=== PATIENT | male | born 1950 | race Asian ===

== ENCOUNTER → 2019-10-08 | Outpatient (CLI) | payer MEDICARE ==
[~2019-10-08] MED LIST: ALLO100T30 PO; ASPI81TA50 PO; CANA100T PO; CYCL-259 PO; GABA-826 PO; IBUP-1222 PO; LEVO25TA4 PO; LISI-167 PO; LOVA10TA PO; METF10002 PO; REGADENOSON 0.4 MG/5 ML SYRINGE ONE; TRAM50TA2 PO
== END | disposition home or self-care (01) ==
LOC: CFH 12:32
PROVIDERS: ATTEND Registered Nurse
DX: I10 Essential (primary) hypertension (principal); R07.89 Other chest pain
CPT/HCPCS: 78452; 93017; A9502; J2785

== ENCOUNTER 2019-11-09 15:13 | Emergency (ER) | payer MEDICARE, OTHER ==
[~2019-11-09] VITALS: Ht 172.7 cm; Wt 66.1 kg
[~2019-11-09 15:13] MED LIST changes: -REGADENOSON 0.4 MG/5 ML SYRINGE ONE
[2019-11-09 15:30] VITALS: BP 158/133
--- NOTE | 2019-11-09 15:43 | NUR ---
FIRST CONTACT WITH PT. PT WAS REAR ENDED BY CARE. PT CO OF BACK OF HEAD AND NECK PAIN. PT'S AOX4. RESPS EVEN AND UNLABORED. PA AT BEDSIDE TO EVALUATE AT THIS TIME.
--- NOTE | 2019-11-09 16:15 | NUR ---
PT IN XRAY AT THIS TIME.
--- NOTE | 2019-11-09 17:47 | NUR ---
Patient given discharge instructions and they have confirmed that they understand the instructions. Patient ambulatory with steady gait.
== END 2019-11-09 17:48 | disposition home or self-care (01) ==
LOC: ED 17:45
DX: S16.1XXA Strain of muscle, fascia and tendon at neck level, initial encounter (principal); I10 Essential (primary) hypertension; E11.9 Type 2 diabetes mellitus without complications; J44.9 Chronic obstructive pulmonary disease, unspecified; E03.9 Hypothyroidism, unspecified; E78.5 Hyperlipidemia, unspecified; Z87.891 Personal history of nicotine dependence; V49.09XA Driver injured in collision with other motor vehicles in nontraffic accident, initial encounter; Y93.89 Activity, other specified; Y92.410 Unspecified street and highway as the place of occurrence of the external cause; Y99.8 Other external cause status
CPT/HCPCS: 72125; 99284

== ENCOUNTER → 2020-05-09 | Outpatient (CLI) | payer MEDICARE | END | disposition home or self-care (01) | LOC: CFH 13:53 | PROVIDERS: ATTEND Internal Medicine | DX: J47.9 Bronchiectasis, uncomplicated (principal); J84.10 Pulmonary fibrosis, unspecified; R06.02 Shortness of breath | CPT/HCPCS: 71250 ==

== ENCOUNTER 2021-01-12 10:45 | Outpatient (CLI) | payer MEDICARE ==
[~2021-01-12 10:45] MED LIST changes: -CYCL-259 PO; +CYCL10TA2 PO
[2021-01-12] MEDS ORDERED: SINCALIDE (KINEVAC) 5 MCG ONE (12:05)
[2021-01-12] MEDS ORDERED: SINCALIDE (KINEVAC) 5 MCG IVPush ONE (12:30)
== END 2021-01-12 23:59 | disposition home or self-care (01) ==
LOC: RAD 10:45
PROVIDERS: ATTEND Family Medicine
DX: R93.5 Abnormal findings on diagnostic imaging of other abdominal regions, including retroperitoneum (principal)
CPT/HCPCS: 78227; A9537; J2805